=== PATIENT | female | born 1970 | race Caucasian/White ===

== ENCOUNTER 2016-11-19 08:33 | Emergency (ER) | payer MEDICAID ==
[2016-11-19] MEDS ORDERED: Silver Sulfadiazine 1% Cream (20 gm) TOP STA (09:11)
[2016-11-19] MEDS ORDERED: Oxycodone/Acetaminophen 5/325 mg Tab PO STA (09:12)
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
[2016-11-19 10:14] VITALS: BP 132/70; PULSE 74; RESP 18; TEMP 98; O2SAT 99
== END 2016-11-19 10:15 | disposition home or self-care (01) ==
LOC: ED 08:33
DX: T23.101A Burn of first degree of right hand, unspecified site, initial encounter (principal); X15.8XXA Contact with other hot household appliances, initial encounter

== ENCOUNTER 2018-07-22 08:00 | Outpatient (CLI) | payer MEDICAID | END 2018-07-22 08:01 | disposition home or self-care (01) | LOC: RAD 08:00 ==

== ENCOUNTER 2018-08-11 09:43 | Outpatient (CLI) | payer MEDICAID | END 2018-08-11 09:44 | disposition home or self-care (01) | LOC: RAD 09:43 ==